=== PATIENT | female | born 1980 | race Caucasian/White ===

== ENCOUNTER 2020-03-25 15:32 | Emergency (ER) | payer OTHER ==
[2020-03-25] MEDS ORDERED: AUGMENTIN 875-1 EACH PO (17:18)
[2020-03-25] MEDS ORDERED: NORCO 5-325 TA1 EACH PO (17:18)
== END 2020-03-25 17:50 | disposition home or self-care (01) ==
LOC: FER 15:32
DX: K04.7 Periapical abscess without sinus (principal)
CPT/HCPCS: 99282; Q0163

== ENCOUNTER 2021-08-27 18:29 | Emergency (ER) | payer OTHER ==
[~2021-08-27 18:29] MED LIST: AUGMENTIN 875-1 EACH PO; NORCO 5-325 TA1 EACH PO
[2021-08-27] MEDS ORDERED: CLEOCIN300 MG PO (19:48)
[2021-08-27] MEDS ORDERED: NORCO 5-325 TA1 EACH PO (19:48)
== END 2021-08-27 20:58 | disposition home or self-care (01) ==
LOC: FER 18:29
DX: K04.7 Periapical abscess without sinus (principal); Z28.311 Partially vaccinated for COVID-19
CPT/HCPCS: 99282; Q0163